=== PATIENT | male | born 1970 | race Caucasian/White ===

== ENCOUNTER 2025-05-05 05:44 | Inpatient (IN) | payer OTHER ==
[~2025-05-05] VITALS: Ht 175.3 cm; Wt 112.5 kg
[~2025-05-05 05:44] MED LIST: BENICAR20 MG PO; DOXAZOSIN MESYLA2 MG PO; MULTIVITAMINS1 EAC6 PO; NIFEDIPINE ER30 M1 PO
[2025-05-05] MEDS: SODIUM CHLORIDE 0.9% 1000ML 1,000 ML ONE (06:20)
[2025-05-05] MEDS: PIPERACILLIN/TAZOBACTAM 3.375 GM VIAL ONE (06:21)
[2025-05-05] MEDS: GENTAMICIN 80MG/NS 100 ML 200 ML IV ONE (06:22)
[2025-05-05 06:45] LABS: BASOPHILS % 0.6 % (0.0-1.0); EOSINOPHILS # (AUTO) 0.3 (0.0-0.4); EOSINOPHILS % 4.7 % (0.0-6.0); HEMATOCRIT 40.9 % (38.2-49.6); HEMOGLOBIN 13.8 g/dL (14.0-18.0); LYMPHOCYTES # (AUTO) 1.6 (1.0-3.2); MEAN CORPUSCULAR HEMOGLOBIN 27.4 pg (28-32); MEAN CORPUSCULAR HGB CONC 33.7 g/dL (31-35); MEAN CORPUSCULAR VOLUME 81.2 fL (81-99); MONOCYTES # (AUTO) 0.6 (0.2-0.8); MONOCYTES % 8.8 % (4.4-11.3); NEUTROPHILS % 61.4 % (38.7-80.0); PLATELET COUNT 246 x10e3/uL (140-360); RED BLOOD COUNT 5.04 x10e6/uL (4.3-5.7); RED CELL DISTRIBUTION WIDTH 14.4 % (11.7-14.4); WHITE BLOOD COUNT 6.57 x10e3/uL (4.8-10.8)
[2025-05-05 07:06] LABS: ANION GAP 15.2 mmol/L (8-16); CREATININE, SERUM 1.07 mg/dL (0.72-1.25); POTASSIUM 4.2 mmol/L (3.5-5.1)
[2025-05-05] MEDS ORDERED: MIDAZOLAM HCL 2 MG/2 ML VIAL ONE (07:59)
[2025-05-05] MEDS ORDERED: LIDOCAINE HCL 2% LOCAL INJ 5 ML SDV VIAL INJ ONE (07:59)
[2025-05-05] MEDS ORDERED: FENTANYL CITRATE/PF 100MCG/2 ML INJ ONE ×2 (07:59→08:38)
[2025-05-05] MEDS ORDERED: ACETAMINOPHEN 1000 MG/100 ML 100 ML IV ONE (07:59)
[2025-05-05] MEDS ORDERED: SEVOFLURANE INHAL SOLN 250 ML PEN BTL ONE (07:59)
[2025-05-05] MEDS ORDERED: PROPOFOL IV EMULSION 10 MG/ML 20 ML VIAL ONE (07:59)
[2025-05-05] MEDS ORDERED: ONDANSETRON HCL INJ 2MG/ML 2ML 2 MG/ML VIAL ONE (08:08)
[2025-05-05] MEDS ORDERED: DEXAMETHASONE SOD PHOS INJ 4 MG/ML SDV ONE (08:08)
[2025-05-05] MEDS ORDERED: ONDANSETRON HCL INJ 2MG/ML 2ML 2 MG/ML VIAL IV PRN (08:30)
[2025-05-05] MEDS ORDERED: ACETAMINOPHEN 1000 MG/100 ML IV PRN (08:30)
[2025-05-05] MEDS ORDERED: DIPHENHYDRAMINE HCL 25 MG CAP PO PRN (08:30)
[2025-05-05] MEDS ORDERED: ROCURONIUM BROMIDE 1 ML IV ONE (08:35)
[2025-05-05] MEDS: SENNA-S TABLET PO SCH (09:00)
[2025-05-05 11:04] LABS: BASOPHILS % 0.4 % (0.0-1.0); EOSINOPHILS # (AUTO) 0.1 (0.0-0.4); EOSINOPHILS % 1.5 % (0.0-6.0); HEMATOCRIT 38.5 % (38.2-49.6); HEMOGLOBIN 12.3 g/dL (14.0-18.0); LYMPHOCYTES % 13.6 % (18.0-39.1); MEAN CORPUSCULAR HEMOGLOBIN 26.8 pg (28-32); MEAN CORPUSCULAR HGB CONC 31.9 g/dL (31-35); MEAN CORPUSCULAR VOLUME 83.9 fL (81-99); MONOCYTES # (AUTO) 0.2 (0.2-0.8); MONOCYTES % 2.5 % (4.4-11.3); NEUTROPHILS # (AUTO) 5.8 (2.1-6.9); NEUTROPHILS % 81.7 % (38.7-80.0); PLATELET COUNT 237 x10e3/uL (140-360); RED BLOOD COUNT 4.59 x10e6/uL (4.3-5.7); RED CELL DISTRIBUTION WIDTH 14.5 % (11.7-14.4); WHITE BLOOD COUNT 7.13 x10e3/uL (4.8-10.8)
[2025-05-05 11:11] LABS: ANION GAP 11.6 mmol/L (8-16); CREATININE, SERUM 1.17 mg/dL (0.72-1.25)
[2025-05-05 11:15] LABS: POTASSIUM 5.6 mmol/L (3.5-5.1)
[2025-05-05] MEDS: SODIUM CHLORIDE 0.9% 1000ML 1,000 ML IV SCH (11:17)
[2025-05-05] MEDS: PHENAZOPYRIDINE HCL 100 MG TAB PO PRN (11:17)
[2025-05-05 13:09] VITALS: BP 104/61; PULSE 71; RESP 16; TEMP 97.8; O2SAT 97
[2025-05-05 16:50] VITALS: BP 121/71; PULSE 66; RESP 18; TEMP 97.9
[2025-05-05 20:00] VITALS: BP 122/70; PULSE 63; RESP 18; TEMP 98; O2SAT 97
[2025-05-05 20:32] VITALS: PULSE 63; RESP 18; O2SAT 97
[2025-05-06] VITALS (9 sets, daily range): BP systolic 124–135; BP diastolic 65–75; PULSE 60–75; RESP 18–19; TEMP 97.7–98.3; O2SAT 94–99
[2025-05-06 05:18] LABS: BASOPHILS % 0.3 % (0.0-1.0); EOSINOPHILS % 0.1 % (0.0-6.0); HEMATOCRIT 37.2 % (38.2-49.6); HEMOGLOBIN 12.2 g/dL (14.0-18.0); LYMPHOCYTES % 6.9 % (18.0-39.1); MEAN CORPUSCULAR HEMOGLOBIN 27.4 pg (28-32); MEAN CORPUSCULAR HGB CONC 32.8 g/dL (31-35); MEAN CORPUSCULAR VOLUME 83.4 fL (81-99); MONOCYTES # (AUTO) 1.1 (0.2-0.8); MONOCYTES % 7.7 % (4.4-11.3); NEUTROPHILS # (AUTO) 12.2 (2.1-6.9); NEUTROPHILS % 84.6 % (38.7-80.0); PLATELET COUNT 234 x10e3/uL (140-360); RED BLOOD COUNT 4.46 x10e6/uL (4.3-5.7); RED CELL DISTRIBUTION WIDTH 14.6 % (11.7-14.4); WHITE BLOOD COUNT 14.41 x10e3/uL (4.8-10.8)
[2025-05-06 05:46] LABS: ANION GAP 13.2 mmol/L (8-16); CALCIUM 8.3 mg/dL (8.4-10.2); CREATININE, SERUM 0.98 mg/dL (0.72-1.25); POTASSIUM 4.2 mmol/L (3.5-5.1)
[2025-05-06] MEDS ORDERED: ACETAMINOPHEN 325 MG TAB PO PRN (09:45)
[2025-05-06] MEDS ORDERED: HYDRALAZINE HCL 20 MG/ML VIAL IV PRN (09:45)
[2025-05-06] MEDS: NIFEDIPINE CR 30 MG TAB PO SCH (21:35)
[2025-05-06] MEDS: ACETAMINOPHEN/CODEINE 300MG - 30MG TAB PO PRN (21:58)
[2025-05-07] VITALS (11 sets, daily range): BP systolic 125–154; BP diastolic 70–91; PULSE 63–83; RESP 18–20; TEMP 97.3–98.6; O2SAT 96–98
[2025-05-07 05:20] LABS: BASOPHILS # (AUTO) 0.1 (0.0-0.1); BASOPHILS % 0.5 % (0.0-1.0); EOSINOPHILS # (AUTO) 0.3 (0.0-0.4); HEMATOCRIT 37.1 % (38.2-49.6); LYMPHOCYTES % 20.5 % (18.0-39.1); MEAN CORPUSCULAR HEMOGLOBIN 27.2 pg (28-32); MEAN CORPUSCULAR HGB CONC 32.3 g/dL (31-35); MEAN CORPUSCULAR VOLUME 84.1 fL (81-99); MONOCYTES # (AUTO) 0.9 (0.2-0.8); NEUTROPHILS # (AUTO) 6.5 (2.1-6.9); NEUTROPHILS % 66.4 % (38.7-80.0); PLATELET COUNT 219 x10e3/uL (140-360); RED BLOOD COUNT 4.41 x10e6/uL (4.3-5.7); RED CELL DISTRIBUTION WIDTH 15.1 % (11.7-14.4); WHITE BLOOD COUNT 9.85 x10e3/uL (4.8-10.8)
[2025-05-07 05:38] LABS: ANION GAP 10.1 mmol/L (8-16); CALCIUM 8.4 mg/dL (8.4-10.2); CREATININE, SERUM 1.05 mg/dL (0.72-1.25); POTASSIUM 4.1 mmol/L (3.5-5.1)
[2025-05-08] VITALS (7 sets, daily range): BP systolic 127–136; BP diastolic 78–84; PULSE 65–119; RESP 17–19; TEMP 97.7–98.5; O2SAT 92–100
[2025-05-08 08:05] LABS: BASOPHILS # (AUTO) 0.1 (0.0-0.1); BASOPHILS % 0.5 % (0.0-1.0); EOSINOPHILS # (AUTO) 0.4 (0.0-0.4); EOSINOPHILS % 3.7 % (0.0-6.0); HEMATOCRIT 38.7 % (38.2-49.6); HEMOGLOBIN 12.4 g/dL (14.0-18.0); LYMPHOCYTES # (AUTO) 1.8 (1.0-3.2); LYMPHOCYTES % 18.2 % (18.0-39.1); MEAN CORPUSCULAR HEMOGLOBIN 27.1 pg (28-32); MEAN CORPUSCULAR VOLUME 84.5 fL (81-99); MONOCYTES # (AUTO) 0.9 (0.2-0.8); NEUTROPHILS # (AUTO) 6.7 (2.1-6.9); NEUTROPHILS % 67.9 % (38.7-80.0); PLATELET COUNT 214 x10e3/uL (140-360); RED BLOOD COUNT 4.58 x10e6/uL (4.3-5.7); WHITE BLOOD COUNT 9.84 x10e3/uL (4.8-10.8)
[2025-05-08 08:28] LABS: CALCIUM 8.7 mg/dL (8.4-10.2); CREATININE, SERUM 0.95 mg/dL (0.72-1.25)
[2025-05-09] VITALS (9 sets, daily range): BP systolic 128–146; BP diastolic 74–89; PULSE 73–94; RESP 18–19; TEMP 97.9–98.7; O2SAT 96–100
[2025-05-09 08:16] LABS: BASOPHILS # (AUTO) 0.1 (0.0-0.1); BASOPHILS % 0.5 % (0.0-1.0); EOSINOPHILS # (AUTO) 0.3 (0.0-0.4); EOSINOPHILS % 2.7 % (0.0-6.0); HEMOGLOBIN 12.4 g/dL (14.0-18.0); LYMPHOCYTES # (AUTO) 1.5 (1.0-3.2); LYMPHOCYTES % 13.1 % (18.0-39.1); MEAN CORPUSCULAR HEMOGLOBIN 27.1 pg (28-32); MEAN CORPUSCULAR HGB CONC 32.6 g/dL (31-35); MEAN CORPUSCULAR VOLUME 83.2 fL (81-99); MONOCYTES # (AUTO) 0.9 (0.2-0.8); MONOCYTES % 7.9 % (4.4-11.3); NEUTROPHILS # (AUTO) 8.3 (2.1-6.9); NEUTROPHILS % 75.5 % (38.7-80.0); PLATELET COUNT 221 x10e3/uL (140-360); RED BLOOD COUNT 4.57 x10e6/uL (4.3-5.7); RED CELL DISTRIBUTION WIDTH 14.8 % (11.7-14.4); WHITE BLOOD COUNT 11.04 x10e3/uL (4.8-10.8)
[2025-05-09 08:40] LABS: ANION GAP 13.1 mmol/L (8-16); CALCIUM 8.9 mg/dL (8.4-10.2); CREATININE, SERUM 0.9 mg/dL (0.72-1.25); POTASSIUM 4.1 mmol/L (3.5-5.1)
== END 2025-05-09 16:53 | disposition home or self-care (01) | DRG 713 ==
LOC: OR 05:44 → PACU V 08:25 → MED/SURG 10:50
PROVIDERS: ADMIT Internal Medicine; ATTEND Internal Medicine
PROC: BT141ZZ Fluoroscopy of Kidneys, Ureters and Bladder using Low Osmolar Contrast (ICD-10-PCS; 2025-05-05)
PROC: 0T788ZZ Dilation of Bilateral Ureters, Via Natural or Artificial Opening Endoscopic (ICD-10-PCS; 2025-05-05)
PROC: BD4CZZZ Ultrasonography of Rectum (ICD-10-PCS; 2025-05-05)
PROC: 0VB08ZZ Excision of Prostate, Via Natural or Artificial Opening Endoscopic (ICD-10-PCS; principal; 2025-05-05 08:00)
PROC: 0VB03ZX Excision of Prostate, Percutaneous Approach, Diagnostic (ICD-10-PCS; 2025-05-05 08:00)
DX: N40.1 Benign prostatic hyperplasia with lower urinary tract symptoms (principal); N13.8 Other obstructive and reflux uropathy; N39.0 Urinary tract infection, site not specified; R31.0 Gross hematuria; R97.20 Elevated prostate specific antigen [PSA]; N41.9 Inflammatory disease of prostate, unspecified; D72.829 Elevated white blood cell count, unspecified; R33.9 Retention of urine, unspecified; I10 Essential (primary) hypertension; E78.5 Hyperlipidemia, unspecified; E66.9 Obesity, unspecified; Z68.36 Body mass index [BMI] 36.0-36.9, adult; Z71.81 Spiritual or religious counseling; Z79.899 Other long term (current) drug therapy
CPT/HCPCS: 36415; 74420; 76872; 76942; 80048; 83735; 85025; 88305; 94799; C1758; J1100; J1580; J2003; J2250; J2405; J2543; J7030

== ENCOUNTER 2025-05-13 00:46 | Emergency (ER) | payer OTHER ==
[~2025-05-13] VITALS: Ht 175.3 cm; Wt 112.5 kg
[2025-05-13 00:50] VITALS: PULSE 89; RESP 16; TEMP 98.6
[2025-05-13 02:40] VITALS: BP 118/68; PULSE 74; RESP 18; TEMP 98.3; O2SAT 98
== END 2025-05-13 02:29 | disposition home or self-care (01) ==
LOC: ER 00:50
DX: Z46.6 Encounter for fitting and adjustment of urinary device (principal); I10 Essential (primary) hypertension
CPT/HCPCS: 99282

== ENCOUNTER 2025-05-13 06:00 | Emergency (ER) | payer OTHER ==
[~2025-05-13] VITALS: Ht 175.3 cm; Wt 112.5 kg
[2025-05-13 06:03] VITALS: PULSE 92; RESP 17; TEMP 98.1
[2025-05-13 06:44] VITALS: BP 151/87; PULSE 85; RESP 17; O2SAT 100
== END 2025-05-13 06:46 | disposition home or self-care (01) ==
LOC: ER 06:11
DX: Z46.6 Encounter for fitting and adjustment of urinary device (principal); I10 Essential (primary) hypertension
CPT/HCPCS: 99282